=== PATIENT | male | born 1940 | race Caucasian/White ===

== ENCOUNTER → 2023-04-23 | Outpatient (CLI) | payer MEDICARE ==
--- NOTE | 2023-04-23 11:01 | CT ---
EXAMINATION TYPE: CT brain wo con DATE OF EXAM: 04/23/2023 COMPARISON: None HISTORY: Disorientation, confusion, memory loss, sundowners CT DLP: 1136.80 mGycm Automated exposure control for dose reduction was used. FINDINGS: There is moderate to severe generalized degenerative changes with slightly greater central component. There is a hypoattenuation in the deep white matter bilaterally. There is no midline shift or mass e ffect. No acute hemorrhage. The craniocervical junction is maintained. There is a partially empty sella turcica. Hypoattenuation within the right thalamus compatible with remote lacunar infarct. IMPRESSION: MODERATE TO SEVERE GENERALIZED DEGENERATIVE CHANGE WITH SLIGHTLY GREATER CENTRAL COMPONENT. A COMPONE NT OF NORMAL PRESSURE HYDROCEPHALUS IN THE DIFFERENTIAL DIAGNOSIS CORRELATE CLINICALLY. MODERATE HYPOATTENUATION IN THE WHITE MATTER IS MOST COMPATIBLE WITH REMOTE MICROVASCULAR ISCHEMIC DI SEASE.
== END | disposition home or self-care (01) ==
LOC: RADCTMAIN 09:31
PROVIDERS: ATTEND Family Medicine
DX: R90.82 White matter disease, unspecified (principal); R41.0 Disorientation, unspecified; R41.3 Other amnesia
CPT/HCPCS: 70450